=== PATIENT | female | born 1970 | race Hispanic/Latino ===

== ENCOUNTER 2022-01-24 11:35 | Emergency (ER) | payer MEDICAID ==
[~2022-01-24] VITALS: Ht 157.5 cm; Wt 77.1 kg
[2022-01-24 12:29] VITALS: BP 119/58
[2022-01-24] MEDS ORDERED: IBUP-2071 PO (12:38)
== END 2022-01-24 12:52 | disposition home or self-care (01) ==
LOC: EDH 11:35
DX: M70.51 Other bursitis of knee, right knee (principal); R22.41 Localized swelling, mass and lump, right lower limb; Z90.49 Acquired absence of other specified parts of digestive tract; E11.9 Type 2 diabetes mellitus without complications
CPT/HCPCS: 99282

== ENCOUNTER 2024-01-15 20:47 | Emergency (ER) | payer SELFPAY ==
[~2024-01-15] VITALS: Ht 157.5 cm; Wt 68.0 kg
[~2024-01-15 20:47] MED LIST: IBUP-2071 PO
[2024-01-15] MEDS: CYCLOBENZAPRINE HCL 10 MG TABLET PO ONE (23:26)
[2024-01-15 23:36] VITALS: BP 115/78; PULSE 73; RESP 18; O2SAT 99
== END 2024-01-15 23:38 | disposition home or self-care (01) ==
LOC: EDH 20:47
DX: M25.561 Pain in right knee (principal); M79.641 Pain in right hand; E11.9 Type 2 diabetes mellitus without complications; Z90.49 Acquired absence of other specified parts of digestive tract; W18.39XA Other fall on same level, initial encounter; Y93.89 Activity, other specified; Y92.89 Other specified places as the place of occurrence of the external cause; Y99.8 Other external cause status
CPT/HCPCS: 73130; 73564

== ENCOUNTER 2025-04-25 15:02 | Emergency (ER) | payer SELFPAY ==
[~2025-04-25] VITALS: Ht 157.5 cm; Wt 84.4 kg
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
[2025-04-25] MEDS: CYCLOBENZAPRINE HCL 10 MG TABLET PO ONE (16:10)
[2025-04-25] MEDS ORDERED: PRED20TA3 PO (16:20)
[2025-04-25] MEDS ORDERED: IBUP-2077 PO (16:20)
[2025-04-25] MEDS ORDERED: MECL-302 PO (16:20)
[2025-04-25 17:19] VITALS: BP 156/89; PULSE 86; RESP 17; TEMP 98.8; O2SAT 98
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
[2025-04-25] MEDS ORDERED: TRAM-543 PO (17:41)
== END 2025-04-25 17:53 | disposition home or self-care (01) ==
LOC: EDH 15:02
DX: S32.010D Wedge compression fracture of first lumbar vertebra, subsequent encounter for fracture with routine healing (principal); H81.10 Benign paroxysmal vertigo, unspecified ear; G89.29 Other chronic pain; E11.9 Type 2 diabetes mellitus without complications; Z90.49 Acquired absence of other specified parts of digestive tract; X58.XXXD Exposure to other specified factors, subsequent encounter
CPT/HCPCS: 99284; 72100; 96372 ×2; J1100; J1885